=== PATIENT | female | born 1985 | race Caucasian/White ===

== ENCOUNTER 2017-12-30 13:15 | Inpatient (IN) | payer OTHER ==
[~2017-12-30] VITALS: Ht 165.1 cm; Wt 79.4 kg
[~2017-12-30 13:15] MED LIST: CITRIC ACID/SODIUM CITRATE 30 ML SOLUTION UDCUP PO PRN; LIDOCAINE/PF 1% 30 ML VIAL INJ PRN; METHYLERGONOVINE MALEATE 0.2 MG/ML VIAL IM PRN; METOCLOPRAMIDE HCL 5 MG/ML 2 ML VIAL IVP PRN; OXYGEN THERAPY IH SCH; OXYTOCIN 30 UNITS/LACT RINGERS 500 ML IV ONE; RINGERS SOLUTION,LACTATED 1,000 ML IV PRN
[2017-12-30] MEDS ORDERED: RINGERS SOLUTION,LACTATED 1,000 ML IV ONE (14:17)
[2017-12-30 14:31] LABS: BASOPHILS % (AUTO) 0.3 % (0.0-2.0); EOSINOPHILS % (AUTO) 0.1 % (1.0-6.0); HEMATOCRIT 38.4 % (36-46); HEMOGLOBIN 13.2 g/dL (12.0-16.0); LYMPHOCYTES # (AUTO) 1.4 K/uL (1.0-4.8); MEAN CORPUSCULAR HEMOGLOBIN 29.9 pg (26.0-34.0); MEAN CORPUSCULAR HGB CONC 34.3 G/dL (31.0-37.0); MEAN CORPUSCULAR VOLUME 87 fL (80-100); MONOCYTES # (AUTO) 0.7 K/uL (0.1-1.0); MONOCYTES % (AUTO) 6.8 % (2.0-9.0); NEUTROPHILS # (AUTO) 8.7 K/uL (1.8-7.7); NEUTROPHILS % (AUTO) 79.8 % (40.0-70.0); PLATELET COUNT (AUTO) 231 K/uL (150-450); RED CELL DISTRIBUTION WIDTH 14.5 % (11.5-14.5)
[2017-12-30] MEDS: FentaNYL CITRATE-PF 100 MCG/2 ML VIAL IVP PRN ×2 (14:45→17:09)
[2017-12-30] MEDS: RINGERS SOLUTION,LACTATED 1,000 ML IV SCH ×2 (14:46→18:17)
[2017-12-30 16:23] VITALS: BP 101/65
[2017-12-30] MEDS ORDERED: ROPIVACAINE HCL/PF 0.2% 100 ML ED ONE (17:36)
[2017-12-30] MEDS ORDERED: ROPIVACAINE HCL/PF 0.2% 100 ML ED PRN (19:24)
[2017-12-30] MEDS ORDERED: NALBUPHINE HCL 10 MG/ML VIAL IVP PRN (19:30)
[2017-12-30] MEDS ORDERED: DiphenhydrAMINE HCL 50 MG/ML VIAL IVP PRN (19:30)
[2017-12-30] MEDS ORDERED: ONDANSETRON HCL 4 MG/2 ML VIAL IVP PRN (19:30)
[2017-12-31] MEDS: RINGERS SOLUTION,LACTATED 1,000 ML IV SCH ×2 (00:32→06:32)
[2017-12-31] MEDS ORDERED: CeFAZolin 2 GM/DEXTROSE 50 ML IV ONE (01:45)
[2017-12-31] MEDS ORDERED: OXYTOCIN 30 UNITS/LACT RINGERS 500 ML IV ONE (01:49)
[2017-12-31] MEDS: IBUPROFEN 800 MG TABLET PO SCH ×3 (02:00→20:02)
[2017-12-31] MEDS ORDERED: METHYLERGONOVINE MALEATE 0.2 MG/ML VIAL IM PRN (02:00)
[2017-12-31] MEDS ORDERED: OXYTOCIN 30 UNITS/LACT RINGERS 500 ML IV PRN (02:00)
[2017-12-31] MEDS ORDERED: GLYCERIN/WITCH HAZEL LEAF 40 PADS JAR TP PRN (02:30)
[2017-12-31] MEDS ORDERED: LANOLIN 7 GM OINTMENT TP PRN (02:30)
[2017-12-31] MEDS ORDERED: BENZOCAINE 20%/MENTHOL 56 GM SPRAY CANISTER TP PRN (02:30)
[2017-12-31] MEDS ORDERED: ACETAMINOPHEN/CODEINE 300-30 MG TABLET PO PRN ×2 (02:30)
[2017-12-31 06:23] LABS: BASOPHILS % (AUTO) 0.3 % (0.0-2.0); EOSINOPHILS % (AUTO) 0 % (1.0-6.0); HEMOGLOBIN 12.2 g/dL (12.0-16.0); LYMPHOCYTES % (AUTO) 12.8 % (22.0-44.0); MEAN CORPUSCULAR HEMOGLOBIN 30.1 pg (26.0-34.0); MEAN CORPUSCULAR HGB CONC 34.8 G/dL (31.0-37.0); MEAN CORPUSCULAR VOLUME 86 fL (80-100); MONOCYTES # (AUTO) 1.1 K/uL (0.1-1.0); MONOCYTES % (AUTO) 7.2 % (2.0-9.0); NEUTROPHILS # (AUTO) 12.2 K/uL (1.8-7.7); NEUTROPHILS % (AUTO) 79.7 % (40.0-70.0); PLATELET COUNT (AUTO)-OB 224 K/uL (150-450); RED BLOOD CELL COUNT(AUTO) 4.06 MIL/uL (4.00-5.20); RED CELL DISTRIBUTION WIDTH 14.5 % (11.5-14.5)
[2017-12-31] MEDS: MAGNESIUM HYDROXIDE SUSPENSION 30 ML UDCUP PO SCH (20:01)
[2018-01-01] MEDS: IBUPROFEN 800 MG TABLET PO SCH (06:17)
[2018-01-01] MEDS: MAGNESIUM HYDROXIDE SUSPENSION 30 ML UDCUP PO SCH (09:00)
[2018-01-01] MEDS ORDERED: IBUP-2070 PO (12:22)
[2018-01-01] MEDS ORDERED: DSS100 PO (12:23)
== END 2018-01-01 13:35 | disposition home or self-care (01) | DRG 806 ==
LOC: OBSVTOIN 13:15 → 4S 13:15 → UNDODISIN 14:25
PROVIDERS: ADMIT Obstetrics & Gynecology; ATTEND Obstetrics & Gynecology
PROC: 10D07Z6 Extraction of Products of Conception, Vacuum, Via Natural or Artificial Opening (ICD-10-PCS; principal; 2017-12-31)
PROC: 0W8NXZZ Division of Female Perineum, External Approach (ICD-10-PCS; 2017-12-31)
PROC: 0UQG7ZZ Repair Vagina, Via Natural or Artificial Opening (ICD-10-PCS; 2017-12-31)
PROC: 3E0R3BZ Introduction of Anesthetic Agent into Spinal Canal, Percutaneous Approach (ICD-10-PCS; 2017-12-31)
PROC: 00HU33Z Insertion of Infusion Device into Spinal Canal, Percutaneous Approach (ICD-10-PCS; 2017-12-31)
DX: O69.81X0 Labor and delivery complicated by cord around neck, without compression, not applicable or unspecified (principal); O71.4 Obstetric high vaginal laceration alone; Z37.0 Single live birth; O77.0 Labor and delivery complicated by meconium in amniotic fluid; Z3A.39 39 weeks gestation of pregnancy
CPT/HCPCS: 86901; J0690; J2590; J2795; J3010; J7120